=== PATIENT | female | born 1975 | race Caucasian/White ===

== ENCOUNTER 2021-06-25 21:14 | Outpatient (REF) | payer MEDICAID, SELFPAY ==
[2021-06-25 21:40] LABS: Anion Gap 7.5 mmol/L (3-11); BUN 8 mg/dL (7-18); CO2 26.5 mmol/L (21.0-32.0); CREATININE 0.7 mg/dL (0.55-1.02); Calcium 8.7 mg/dL (8.5-10.1); Chloride 106 mmol/L (98-107); Glucose 92 mg/dL (74-106); Potassium 3.9 mmol/L (3.5-5.1); Sodium 140 mmol/L (136-145)
[2021-06-27 15:29] LABS: COVID-19 RT-PCR UVMMC Result Negative (Negative)
[2021-06-28 10:28] LABS: Hepatitis C Ab w Rflx HCV PCR Negative (Negative)
[2021-06-28 10:33] LABS: Syphilis Serology (RPR) Negative (Negative)
[2021-06-28 13:06] LABS: HIV-1/2 Ag & Ab Screen Negative (Negative)
[2021-06-28 15:36] LABS: Chlamydia Result Negative (Negative); GC Result Negative (Negative)
== END 2021-06-25 21:15 | disposition home or self-care (01) ==
LOC: NCHCN 21:14
PROVIDERS: Visit Provider Nurse Practitioner Family
DX: I10 Essential (primary) hypertension (principal); E28.2 Polycystic ovarian syndrome; Z11.4 Encounter for screening for human immunodeficiency virus [HIV]; Z11.59 Encounter for screening for other viral diseases; Z11.3 Encounter for screening for infections with a predominantly sexual mode of transmission; Z20.822 Contact with and (suspected) exposure to COVID-19
CPT/HCPCS: 80048; 86803; 87389; 87491; 87591; U0003; 86592

== ENCOUNTER 2022-02-09 17:27 | Outpatient (REF) | payer MEDICAID, SELFPAY ==
--- NOTE | 2022-02-09 14:00 | PAPFT_PTH ---
PATIENT: Michelle Arevalo LOC: [facility]#:[id number] AGE/SX: 46/F ROOM: RE02/09/[address]: Carlee Nam : 1975 BED: DIS: 02/09/2022 SPEC #: [id number] RECD: 02/10/22 13:08 STATUS: ZARA GARCIA #: [id number] VICKIE: 02/09/22 14:[address]: Carlee Nam DEPT: [facility] Cytology RECD BY: Be Mae Tissues: 1 - CX/ENDOCX FOR PAP SMEARS Procedures: PAP THIN PREP/UVM Screening HPV DNA PROBE Comments: [id number] (CHLAMYDIA/GC)
[2022-02-10 08:47] LABS: BUN 9 mg/dL (7-18); CREATININE 0.7 mg/dL (0.55-1.02); Calcium 8.8 mg/dL (8.5-10.1); Chloride 105 mmol/L (98-107); Glucose 80 mg/dL (74-106); Potassium 3.8 mmol/L (3.5-5.1); Sodium 141 mmol/L (136-145)
[2022-02-11 10:10] LABS: HBs Antibody, Quant >1000.0 mIU/mL (See Note); Hepatitis B Surface Ab Positive (See Note)
[2022-02-11 11:00] LABS: HIV-1/2 Ag & Ab Screen Negative (Negative)
[2022-02-11 11:16] LABS: Hepatitis C Ab w Rflx HCV PCR Negative (Negative)
[2022-02-11 23:06] LABS: Chlamydia Result Negative (Negative); GC Result Negative (Negative)
== END 2022-02-09 17:28 | disposition home or self-care (01) ==
LOC: NCHCN 17:27
PROVIDERS: Visit Provider Nurse Practitioner Family
DX: I10 Essential (primary) hypertension (principal); Z11.3 Encounter for screening for infections with a predominantly sexual mode of transmission; Z11.4 Encounter for screening for human immunodeficiency virus [HIV]; Z11.59 Encounter for screening for other viral diseases; Z12.4 Encounter for screening for malignant neoplasm of cervix; Z11.51 Encounter for screening for human papillomavirus (HPV)
CPT/HCPCS: 80048; 86706; 86803; 87389; 87491; 87591; 88142; 83880; 87624

== ENCOUNTER 2022-02-09 18:40 | Outpatient (REF) | payer MEDICAID, SELFPAY | END 2022-02-09 18:41 | disposition home or self-care (01) | LOC: NCHCN 18:40 | PROVIDERS: Visit Provider Nurse Practitioner Family ==

== ENCOUNTER 2022-11-29 11:22 | Outpatient (REF) | payer MEDICAID, SELFPAY ==
[2022-11-29 14:57] LABS: HCT 42.1 % (36.0-46.0); HGB 13.9 g/dL (11.2-15.7); MCH 27.8 pg (27.0-33.0); MCV 84 fL (80-95); MPV 9.6 fL (8.0-11.0); Platelet Count 315 10^3/uL (130-400); RDW 13.8 % (11.7-14.6); RDW-SD 42.9 fL; WBC 8.07 10^3/uL (4.4-10.8)
[2022-11-29 15:29] LABS: ALT 26 U/L (14-59); AST 22 U/L (15-37); Albumin 3.7 g/dL (3.4-5.0); Alkaline Phosphatase 55 U/L (46-116); Anion Gap 10.8 mmol/L (3-11); BUN 9 mg/dL (7-18); Bilirubin, Total 0.3 mg/dL (0.2-1.0); CO2 27.2 mmol/L (21.0-32.0); CREATININE 0.8 mg/dL (0.55-1.02); Calcium 9.3 mg/dL (8.5-10.1); Chloride 104 mmol/L (98-107); Estimated GFR 92.54 (mL/min/1.73m2); Ferritin 35 ng/mL (8-252); Glucose 146 mg/dL (74-106); Potassium 3.4 mmol/L (3.5-5.1); Sodium 142 mmol/L (136-145)
[2022-11-29 15:35] LABS: Vitamin D 25 Total 30.8 ng/mL (30-100)
== END 2022-11-29 11:23 | disposition home or self-care (01) ==
LOC: NCHCN 11:22
PROVIDERS: Visit Provider Nurse Practitioner Family
DX: I10 Essential (primary) hypertension (principal); R53.83 Other fatigue
CPT/HCPCS: 80053; 82306; 85027; 82728; 84443

== ENCOUNTER 2023-02-07 11:33 | Outpatient (REF) | payer MEDICAID, SELFPAY ==
[2023-02-07 15:04] LABS: Anion Gap 7.7 mmol/L (3-11); BUN 11 mg/dL (7-18); CO2 26.3 mmol/L (21.0-32.0); CREATININE 0.8 mg/dL (0.55-1.02); Calcium 8.7 mg/dL (8.5-10.1); Chloride 106 mmol/L (98-107); Estimated GFR 92.54 (mL/min/1.73m2); Glucose 93 mg/dL (74-106); Potassium 3.7 mmol/L (3.5-5.1); Sodium 140 mmol/L (136-145)
== END 2023-02-07 11:34 | disposition home or self-care (01) ==
LOC: NCHCN 11:33
PROVIDERS: PCP Nurse Practitioner Family; Visit Provider Nurse Practitioner Family
DX: I10 Essential (primary) hypertension (principal)
CPT/HCPCS: 80048

== ENCOUNTER 2023-07-19 15:33 | Outpatient (REF) | payer MEDICAID, SELFPAY ==
[2023-07-19 21:27] LABS: Anion Gap 8.8 mmol/L (3-11); BUN 9 mg/dL (7-18); CO2 25.2 mmol/L (21.0-32.0); CREATININE 0.7 mg/dL (0.55-1.02); Calcium 9.1 mg/dL (8.5-10.1); Chloride 104 mmol/L (98-107); Estimated GFR 107.95 (mL/min/1.73m2); Glucose 120 mg/dL (74-106); Potassium 3.4 mmol/L (3.5-5.1); Sodium 138 mmol/L (136-145)
== END 2023-07-19 15:34 | disposition home or self-care (01) ==
LOC: NCHCN 15:33
PROVIDERS: PCP Nurse Practitioner Family; Visit Provider Nurse Practitioner Family
DX: I10 Essential (primary) hypertension (principal); R73.03 Prediabetes; N93.9 Abnormal uterine and vaginal bleeding, unspecified
CPT/HCPCS: 80048; 83036

== ENCOUNTER 2024-06-11 15:48 | Outpatient (REF) | payer MEDICAID, SELFPAY ==
[2024-06-11 14:30] LABS: ALT 24 U/L (14-59); AST 18 U/L (15-37); Albumin 3.6 g/dL (3.4-5.0); Alkaline Phosphatase 59 U/L (46-116); Anion Gap 8.2 mmol/L (3-11); BUN 8 mg/dL (7-18); Bilirubin, Total 0.33 mg/dL (0.2-1.0); CO2 26.8 mmol/L (21.0-32.0); CREATININE 0.7 mg/dL (0.55-1.02); Calcium 8.9 mg/dL (8.5-10.1); Calculated LDL 111 mg/dL (<100); Chloride 104 mmol/L (98-107); Cholesterol 181 mg/dL (<200); Estimated GFR 107.28 (mL/min/1.73m2); Glucose 128 mg/dL (74-106); HDL Cholesterol 48 mg/dL (40-60); Potassium 3.6 mmol/L (3.5-5.1); Sodium 139 mmol/L (136-145); Triglyceride 113 mg/dL (<150)
--- OUTSIDE RECORDS SUMMARY | 2024-06-11 15:50 | XMS_ITS | Data Portability ---
Author Organization [place] - [facility], Historical Import Interface Address [address] [place] [address] Assessment Encounter Date Assessment Date Assessment LastModified by Organization Details LastModified Time 06/29/2023 06/29/2023 06-29-23 [place] [facility], PHOTOC[employer]YING [employer]IPMENT MECH[employer]IC NHV 6 mo Apro Luis John?? Completed Procedures D4346 - Scaling in the presence of generalized moderate or severe gingival inflammation - full mouth, after oral evaluation D0601 - Caries risk assessment and documentation, with a finding of low risk CC:?? No tooth concerns?? HHX: Reviewed, no changes. No CI to TX. ?? ON 2 BP meds?being monitered for increasing BP?? BP: ?? 152/101 75 right wrist omron? EOE/IOE: No s/s of hard or soft tissue pathology. ?? Exam: ??PT had MAISHA and FMX december 2022? over 3 years since last cleaning. pt aware #c is retained with blocked #6?? Caries Risk: ?? mod?? POH:?? using electric tb daily Brushing: some with flossers Flossing: ?? Plaque: sl Calculus: mod to heavy IP, mod supra/ip sandy ant lingual Stain: mod coffee?? Bleeding: mod to heavy chani UL Gingival tissues: ??generalized moderate-severe inflammation bleeds easily?? OHI: Recommended brushing 2x/daily along gumline , flossing 1x/daily, using NaF rinse daily. Explained plaque, gingivitis, tartar, decay and perio. Demo ramos sulcular brushing technique. Demo flossing technique. ?? Perio: see perio chart today?localized 4-5 mm?? should have some nice healing after today. . Discussed with pt- Recommended thorough OH, daily flossing to help improve and maintain gingival condition. ?? Hygiene Txt: Scaled/deplaque d all 4 quads with HI and USS. Polished, flossed. ?? pt tolerated well?? Referral: None. ?? D0601 Caries vesta LOW , 10:04 AM. I attest that the treatment rendered today is completed and treatment met the standard of care. , 11:00 AM. [id number] Not available 08/14/2023 16:36:49 Plan of Treatment Reminders Order Date Submit Date Provider Last Modified By Organization Details Last Modified Time Details Appointments None record ed. Lab None record ed. Referral None record ed. Procedures None record ed. Surgeries None record ed. Imaging None record ed. Medication Orders None record ed. Patient TargetsNo targets recorded. Patient InstructionsNo instructions recorded. Reason for Referral None Reported. Medical Equipment None Reported. Medications Name Sig Start Date Stop Date Status Note LastModified by Organization Details LastModified Time amlodipine 2.5 mg tablet active Not Available Not Availabl e Not Available Vitals None Recorded Social History None recorded. Functional Status None recorded. Mental Status None recorded. Family History Nothing Reported. Medical History No medical history recorded. Gynecological HistoryNo gynecological history recorded. Obstetrics History GPAL:G 0 P 0 0 0 0 Past Encounters Encounter ID Performer Location Encounter Start Date Encounter Closed Date Diagnosis/Indication Diagnosis SNOMED-CT Code Diagnosis ICD10 Code [id number] Dental [address] [place] [address] 12/08/2022 08:55:52 03/25/2023 00:00:00 [id number] [facility] [address] [facility] [address] 06/29/2023 07:59:00 08/14/2023 16:36:52 Health Concerns Section Related Observation LastModified by Organization Detai ls LastModified Time None Recorded Concern Status LastModified by Organization Details LastModified Time None Recorded Advance Directives Directive None Recorded Payers Encounter Date Sequence Insurance Name Policy Number Policy Azevedo Covered Member ID Azevedo Member ID Guarantor Name 12/08/2022 [employer] (MOVED TO HOLD) Michelle Arevalo [id number] Michelle Arevalo 12/08/2022 *SELF PAY* Michelle Arevalo 06/29/2023 [employer] (MOVED TO HOLD) Michelle Arevalo [id number] Michelle Arevalo 06/29/2023 *SELF PAY* Michelle Arevalo OBGyn Episode No OBEpisode recorded.
--- OUTSIDE RECORDS SUMMARY | 2024-06-11 15:51 | XMS_ITS | Continuity of Care Document ---
Author Organization [place] - [facility], [facility] Address [address] [place] [address] Assessment Encounter Date Assessment Date Assessment LastModified by Organization Details LastModified Time 05/15/2024 05/15/2024 The patient presents with sudden severe neuropathic pain in her left lower back, buttocks, and upper thigh, likely related to her long-standing history of low back pain. Additionally, the patient has a recent fracture of her right ankle, which may have contributed to her current lower back pain due to altered walking mechanics. The patient has been taking a Medrol Dosepak and gabapentin, with the steroids helping to decrease inflammation and improve her mobility. Patient continues to work her regular job at the [employer]. [email or web address] Not available 05/15/2024 16:38:22 Plan of Treatment Reminders Order Date Submit Date Provider Last Modified By Organization Details Last Modified Time Details Appointments Nurse Visit 20 2023 10:40A M Not available Not available Not available Acupunctu re 10 2023 09:30A M Not available Not available Not available Annual Wellness Exam 40 2023 09:40A M Not available Not available Not available Massage 30 2023 02:00P M Not available Not available Not available Lab None recorded. Referral physical therapist referral 2023 024 [facility], [address] [place] [address], [address], 05/16/2024 07:45:30 Procedures None recorded. Surgeries None recorded. Imaging None recorded. Medication Orders cyclobenz aprine 10 mg tablet 2023 024 [id number], [address], [place], [place], [phone], 05/15/2024 15:41:21 Patient TargetsNo targets recorded. Patient Instructions Encounter Date Encounter Id Patient Instructions Last Modified By Organization Details Last Modified Time 05/15/2024 [id number] - Continue the course of prednisone as prescribed - Consider stopping gabapentin if it is not providing significant pain relief and try a muscle relaxant, such as Flexeril (cyclobenzaprine), instead - Use heat for pain relief in the affected areas - Consider physical therapy to address chronic low back pain and left lower back, buttocks, and upper thigh pain - Follow the orthopedist's recommendations for the right ankle fracture - Monitor for any further episodes of numbness and seek care if symptoms persist or worsen [email or web address] Not available 05/15/2024 15:47:27 Reason for Referral Physical Therapist Referral for Low back pain Referring Physician: [facility], Encounter Date: 05/15/2024 Results Created Date Observation Date Name Description Value Unit Range Abnormal Flag Note LastModifiedBy Organization Detail LastModifiedTime 04/25/20 24 04/24/2024 XR, ankle , 3 or more view No observ ation record ed. [email or web address] [facility] [address], [place], [address], 04/26/2024 07:38:33 Result Notes None recorded. 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 trimeste r Dayanna Valle null, [facility], [facility] 15:27:15 [facility] mercedes 04281993 [facility] 15:24[facility] Screenin g for malignan t neoplasm of breast [facility] 15:28:26 Contrace ption care educatio n Active 2020 [facility] 4 15:24:32 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 A1c 5.8 [facility] 4 15:28:15 Obesity 255936503 Active 2020 BMI 30-34.9, adult [facility] 4 15:27:42 Viral screenin g Completed 202007/23/2021 Problem Code: Z11.59; Problem Code Type: ICD-10; Not Available [facility] 3 04:19:31 HIV screenin g Completed 202007/23/2021 Problem Code: Z11.4; Problem Code Type: ICD-10; Not Available [facility] 3 04:19:31 Tobacco use cessatio n educatio n Active 2021 [facility] 15:28:35 Adult health examinat ion Completed 202103/11/2022 Problem Code: Z00.00; Problem Code Type: ICD-10; Not Available [facility] 3 04:19:31 Venereal disease screenin g Completed 202103/11/2022 Problem Code: Z11.3; Problem Code Type: ICD-10; Not Available [facility] 3 04:19:31 Digestiv e system disease screenin g Completed 202103/11/2022 Problem Code: Z13.818; Problem Code Type: ICD-10; Not Available [facility] 3 04:19:31 Screenin g for malignan t neoplasm of colon Completed 202111/12/2022 Problem Code: Z12.11; Problem Code Type: ICD-10; Not Available [facility] 3 04:19:31 Snoring 77301772 Completed 202108/17/2022 Problem Code: R06.83; Problem Code Type: ICD-10; Not Available [facility] 3 04:19:32 Fatigue 73330283 Active 2022 Dayanna Leonard [facility] 4 15:25:03 History of clinical finding in subject 713808100 Completed 202111/29/2022 Problem Code: Z87.898; Problem Code Type: ICD-10; Not Available [facility] 3 04:19:40 Left side sciatica 37317158983 9104 Active 2023 LISBETH LAWTON MD [address], [facility] [id number] [place] [address] 4 13:07:07 Low back pain 162789340 Active 2023 GIACOMO BEARD [address], [facility] [id number] [place] [address] 4 15:40:12 Fracture of ankle 11434340 Active 2023 GIACOMO BEARD [address], [facility] [id number] [place] [address] 4 16:37:31 Problem Notes None recorded. Medical Equipment None Reported. Allergies Allergen ID Allergen Name Allergen Category Reaction Reaction Severity Criticality Documentation Date Start Date Code Code System Note Provider Name and Address Organization Details Recorded Time 10195 Chantix medicatio n other moderate Not available 08/18/20232022 64701 0 RxNorm No react ion enter ed [facility] 15:29:17 Medications Name Sig Start Date Stop Date Status Note LastModified by Organization Details LastModified Time cyclobenzap rine 10 mg tablet TAKE 1 TABLET BY MOUTH 3 TIMES A DAY active Not Available Not Available No t Available metformin 500 mg tablet 06/25 completed Not Available Not Available Not Available doxycycline hyclate 100 mg capsule Take one capsule two times daily by mouth as directed active Not Available Not Available No t Available azithromyci n 250 mg tablet Take two tablets by mouth on day 1 followed by one tablet daily by mouth for a total of 5 days as directed active Not Available Not Available No t Available fluconazole 150 mg tablet Take one tablet by mouth ONCE. May repeat dose in 72 hours if needed. Take as directed. active Not Available Not Available No t Available metronidazo le 500 mg tablet Take 1 tablet by mouth three times per day for 10 days. DO NOT DRINK ALCOHOL WHILE TAKING THIS MEDICATIO N. Take as directed. active Not Available Not Available No t Available phentermine 37.5 mg tablet Take 1 tablet by mouth once a day 06/25 completed Not Available Not Available Not Available amlodipine 5 mg tablet Take 1 tablet by mouth once a day 12/12 completed Not Available Not Available Not Available ciprofloxac in 500 mg tablet Take one tablet two times daily by mouth as directed active Not Available Not Available No t Available Nicoderm CQ 7 mg/24 hr daily transdermal patch Apply 1 patch to skin once a day rotate skin sites 02/09 completed Not Available Not Available Not Available alprazolam 0.25 mg tablet Take 1 tablet by mouth twice a day as needed 06/25 completed Not Available Not Available Not Available Nicoderm CQ 14 mg/24 hr daily transdermal patch Apply 1 patch to skin once a day Apply to hairless area. Rotate skin sites. 06/08 completed Not Available Not Available Not Available amlodipine 10 mg tablet Take 1 tablet every day by oral route. 11/02 completed Not Available Not Available Not Available albendazole 200 mg tablet Take 2 tablets as a single dose by mouth; repeat in 2 weeks as directed active Not Available Not Available No t Available gabapentin 300 mg capsule TAKE 1 CAPSULE TWICE A DAY BY ORAL ROUTE NEEDED, FOR ACUTE SCIATICA. active Not Available Not Available No t Available methylpredn isolone 4 mg tablets in a dose pack Take the medicatio n exactly as prescribe d by your physician . The Medrol Dosepak comes with 21 tablets, to be taken over a course of 6 days. active Not Available Not Available No t Available amoxicillin 875 mg-potassiu m clavulanate 125 mg tablet Take one tablet by mouth two times daily as directed active Not Available Not Available No t Available olmesartan 5 mg tablet Take 2 tablet by mouth once a day take one pill per day for 1 week then increase to 2 pills per day if your BP is still above 150/90 01/28 completed Not Available Not Available Not Available olmesartan 20 mg tablet TAKE 1 TABLET BY MOUTH EVERYDAY AT BEDTIME 09/05 completed Not Available Not Available Not Available olmesartan 40 mg tablet TAKE 1 TABLET BY MOUTH EVERYDAY AT BEDTIME 11/02 completed Not Available Not Available Not Available Tri-Sprinte c (28) 0.18 mg(7)/0.215 mg(7)/0.25 mg(7)-35 mcg tablet Take 1 tablet by mouth once a day 06/25 completed Not Available Not Available Not Available varenicline 1 mg tablet Take 1 tablet by mouth twice a day starting on day 8 (after finishing 0.5mg tabs) 06/08 completed Not Available Not Available Not Available amlodipine 10 mg-olmesart an 40 mg tablet TAKE 1 TABLET BY MOUTH EVERY DAY active Not Available Not Available No t Available Plan B One-Step 1.5 mg tablet Take 1 tablet by mouth as directed 11/29 completed Not Available Not Available Not Available Chantix Starting Month Box 0.5 mg (11)-1 mg (42) tablets in dose pack take as directed per instructi ons on package 02/09 completed Not Available Not Available Not Available Vitals Date Recorded Body height Body temperature Oxygen saturation Oxygen saturation in Arterial blood by Pulse oximetry Heart rate Systolic blood pressure Diastolic blood pressure Provider Name and Address Organization Details Last Updated DateTime 4 152.4 cm 98.4 [degF] 97 % 97 % 89 /min 112 mm[Hg] 76 mm[Hg] ZENON HORNE RN [place] [facility] 4 15:20:51 Social History Question Answer Notes LastModified by Organizat ion Details LastModified Time Tobacco Smoking Status Former Smoker ITALO PETERS MA [facility], [facility] 12/13/2023 13:59:37 Do You Or Have You Ever Used E-cigarettes Or Vape? Current User Of Electronic Cigarettes [email or web address] Information not available 12/13/2023 When Did You Quit Smoking? 1-5yearssincelandrew mims [email or web address] Information not available 12/13/2023 Do You Or Have You Ever Used Smokeless Tobacco? Never Used Smokeless Tobacco Information not available 12/13/2023 Do You Or Have You Ever Used Any Other Forms Of Tobacco Or Nicotine? Yes Information not available 12/13/2023 How Many Years Have You Used E-cigarettes Or Vape? 1 [email or web address] Information not available 12/13/2023 Sex: Female Functional Status None recorded. Mental Status None recorded. Family History Nothing Reported Notes:*Problem: Mother - Tra umatic injury at 25 Father - Hypertensive disorder, Hyperlipidemia, Heart disease Paternal Grandfather - Myocardial infraction Paternal Grandmother - Hx of Cerebrovascular accident Medical History No medical history recorded. Gynecological HistoryNo gynecological history recorded. Obstetrics History GPAL:G 0 P 0 0 0 0 Immunizations Vaccine Type Date Status Provider Name and Address Organization Details Recorded Time Tdap 03/19/2014 completed Not Available [facility] 04:40:16 Influenza, split virus, quadrivalent, PF 06/25/2021 completed Not Available [facility] 08/18/2023 04:40:18 Influenza, split virus, quadrivalent, PF 08/09/2022 completed Not Available [facility] 08/18/2023 04:40:18 COVID-19, mRNA, LNP-S, bivalent, PF, 30 mcg/0.3 mL dose 08/09/2022 completed Not Available [facility] 08/18/20 04:40:22 pneumococcal polysaccharide PPV23 02/09/2022 completed Not Available [facility] 2022 04:40:22 influenza, unspecified formulation 07/19/2023 completed BULL Hong, [facility] 09/05/2023 13:13:28 COVID-19, mRNA, LNP-S, PF, janell-sucrose, 30 mcg/0.3 mL 07/19/2023 completed Lisy Dougherty LPN [facility], [place] [facility] 09/05/2023 13:13:50 Influenza, split virus, quadrivalent, PF 07/19/2023 completed Not Available [facility] 10/20/2023 05:31:43 Past Encounters Encounter ID Performer Location Encounter Start Date Encounter Closed Date Diagnosis/Indication Diagnosis SNOMED-CT Code Diagnosis ICD10 Code [id number] ALFREDO RODOST, FLEET [employer]NAGER[employer]DISPATCH [address] [address] 05/15/2024 15:14:09 05/15/2024 15:49:16 Low back pain 401828874 M54.50 Fracture of ankle 385158 01 S82.91XD Health Concerns Section Related Observation LastModified by Organization Detai ls LastModified Time None Recorded Concern Status LastModified by Organization Details LastModified Time None Recorded Payers Encounter Date Sequence Insurance Name Policy Number Policy Azevedo Covered Member ID Azevedo Member ID Guarantor Name 05/15/2024 1 [facility] (MEDICAID) Michelle Arevalo [id number] Michelle Arevalo Notes Date Note Type Note Provider Name and Address Organization Details Recorded Time 05/15/2024 text/html HPI Notes: 49-year-old female presents to clinic today for follow-up back pain. Spoke with on-call provider this past weekend regarding lower back pain radiating to left buttocks. Was treated with Medrol Dosepak and gabapentin. Pain has gradually improved. Low back pain: The patient has a history of low back pain since her last 10 years ago. The pain is usually not debilitating but has recently increased in severity. On Monday, the patient experienced sudden severe pain in her left lower back, buttocks, and upper thigh while bending over, resulting in difficulty walking. She was unable to stand on Monday and Monday morning. The patient started taking a Medrol Dosepak and gabapentin on Monday night. Recent fracture of right ankle: The patient fractured her right ankle on April 10. She was initially advised to wear an air cast and not put any weight on it. After 14 days, she had a follow-up appointment with an orthopedist who allowed her to start putting weight on it and gave her the choice of wearing a boot or shoe. SH The patient is currently working and has a history of substance use, specifically mentioning not drinking alcohol ALFREDO MCKAY, [address], [place], [address], [facility]. 05/15/2024 16:38:33 OBGyn Episode No OBEpisode recorded.
--- OUTSIDE RECORDS SUMMARY | 2024-06-11 15:51 | XMS_ITS | Continuity of Care Document ---
Author Organization [facility] Address [address] [place] [address] Assessment No assessment recorded. Plan of Treatment Reminders Order Date Submit [...] Not available Not available Not available Lab lipid panel, serum 2023 024 [email or web address] [facility] (Registration ), [address] [place] [address] [place], [address], 06/11/2024 10:40:10 HbA1c (hemoglob in A1c), blood 2023 024 [email or web address] [facility] (Registration ), [address] [place] [address] [place], [address], 06/11/2024 10:40:39 CMP, serum or plasma 2023 024 ELIZABETH [facility] (Registration ), [address] [place] [address] [place], [address], 06/11/2024 14:35:28 Referral None recorded. Procedures None recorded. Surgeries None recorded. Imaging None recorded. Medication Orders None recorded. Patient TargetsNo targets recorded. Patient InstructionsNo instructions recorded. Reason for Referral Physical Therapist Referral for Low back pain Referring Physician: Alfredo Mckay, Family Medicine, Encounter Date: 05/15/2024 Problems Name Problem SNOMED Code Status Onset Date Resolution Date Notes Provider Name and Address Organization Details Recorded Time Polycyst ic ovary syndrome 115189096 Active 2020 Dayanna Valle [facility] 4 15:27:55 Anxiety [facility]503580 [facility] 4 15:24[facility] Maternal hyperten mercedes 823561651 Active 2020 unspecif ied trimeste r [facility] 4 15:27:15 [facility] hyperten mercedes 64916911 Active 2020 [facility] 4 15:24:51 Screenin g for malignan t neoplasm of breast Active 2020 [facility] 4 15:28:26 Contrace ption care educatio n Active 2020 [facility] 4 15:24:32 Prediabe america 512085400 Active 2020 [facility] 15:28:15 Obesity 464944515 Active 2020 BMI 30-34.9, [facility] 4 15:27:42 Viral screenin g Completed 202007/23/2021 Problem Code: Z11.59; Problem Code Type: ICD-10; Not Available [facility] 3 04:19:31 HIV screenin g Completed 202007/23/2021 Problem Code: Z11.4; Problem Code Type: ICD-10; Not Available [facility] 3 04:19:31 Tobacco use cessatio n educatio n [facility] 4 15:28:35 Adult health examinat ion Completed 202103/11/2022 Problem Code: Z00.00; Problem Code Type: ICD-10; Not Available [facility] 3 04:19:31 Venereal disease screenin g Completed 202103/11/2022 Problem Code: Z11.3; Problem Code Type: ICD-10; Not Available [facility] 3 04:19:31 Digestiv e system disease screenin g Completed 202103/11/2022 Problem Code: Z13.818; Problem Code Type: ICD-10; Not Available [facility] 3 04:19:31 Screenin g for malignan t neoplasm of colon Completed 202111/12/2022 Problem Code: Z12.11; Problem Code Type: ICD-10; Not Available [facility] 3 04:19:31 Snoring 35522529 Completed 202108/17/2022 Problem Code: R06.83; Problem Code Type: ICD-10; Not Available [facility] 3 04:19:32 Fatigue 60731300 Active 2022 Dayanna Valle merritt, [facility] 4 15:25:03 History of clinical finding in subject 536806213 Completed 202111/29/2022 Problem Code: Z87.898; Problem Code Type: ICD-10; Not Available [facility] 3 04:19:40 Left side sciatica 56134076957 9104 Active [address], [place], [address] , [facility]. 4 13:07:07 Low back pain 377769727 Active [address], [place], [address] , [facility]. 4 15:40:12 Fracture of ankle 69281397 Active 2023 ALFREDO MCKAY, [employer] [address], [place], [address] , [facility] 4 16:37:31 Problem Notes None recorded. Medical Equipment None Reported. Allergies Allergen ID Allergen Name Allergen Category Reaction Reaction Severity Criticality Documentation Date Start Date Code Code System Note Provider Name and Address Organization Details Recorded Time 99173 Chantix medicatio n other moderate Not available 08/18/20232022 09641 0 RxNorm No react ion enter ed Dayanna bang [facility] 4 15:29:17 Medications Name Sig Start [...] Not Available Not Available Not Available Vitals None Recorded Social History Question Answer Notes LastModified by Organizat ion Details LastModified Time Tobacco Smoking Status Former Smoker ITALO PETERS MA null, [place] - [facility]. 12/13/2023 13:59:37 Do You Or Have You Ever Used E-cigarettes Or Vape? Current User Of Electronic Cigarettes [email or web address] Information not available 12/13/2023 When Did You Quit Smoking? 1-5yearssinmarylu prasanna [email or web address] Information not available 12/13/2023 Do You Or Have You Ever Used Smokeless Tobacco? Never Used Smokeless Tobacco [email or web address] Information not available 12/13/2023 Do You Or Have You Ever Used Any Other Forms Of Tobacco Or Nicotine? Yes Information not available 12/13/2023 How Many Years Have You Used E-cigarettes Or Vape? 1 Information not available 12/13/2023 Sex: Female Functional [...] Recorded Time Tdap 03/19/2014 completed Not Available [facility] 04:40:16 Influenza, split virus, quadrivalent, PF 06/25/2021 completed Not Available [facility] 08/18/2023 04:40:18 Influenza, split virus, quadrivalent, PF 08/09/2022 completed Not Available [facility] 08/18/2023 04:40:18 COVID-19, mRNA, LNP-S, bivalent, PF, 30 mcg/0.3 mL dose 08/09/2022 completed Not Available [facility] 08/18/20 04:40:22 pneumococcal polysaccharide PPV23 02/09/2022 completed Not Available [facility] 2022 04:40:22 influenza, unspecified formulation 07/19/2023 completed BULL Hong, [facility] 09/05/2023 13:13:28 COVID-19, mRNA, LNP-S, PF, janell-sucrose, 30 mcg/0.3 mL 07/19/2023 completed BULL Hong, [facility] 09/05/2023 13:13:50 Influenza, split virus, quadrivalent, PF 07/19/2023 completed Not Available [facility] 10/20/2023 05:31:43 Past Encounters Encounter ID Performer Location Encounter Start Date Encounter Closed Date Diagnosis/Indication Diagnosis SNOMED-CT Code Diagnosis ICD10 Code [id number] ALFREDO BELLA, [address] [address] 05/15/2024 15:14:09 05/15/2024 15:49:16 Low back pain 483170518 M54.50 Fracture of ankle 161816 01 S82.91XD [id number] Lisy Dougherty LPN [address] [address] 06/11/2024 09:39:00 06/11/2024 10:21:08 Prediabetes 987147397 R73.03 Essential hypertension 13146146 I10 Health Concerns Section Related Observation LastModified by Organization Detai ls LastModified Time None Recorded Concern Status LastModified by Organization Details LastModified Time None Recorded Payers Encounter Date Sequence Insurance Name Policy Number Policy Azevedo Covered Member ID Azevedo Member ID Guarantor Name 06/11/2024 1 [facility] (MEDICAID) Michelle Arevalo [id number] Michelle Arevalo OBGyn Episode No OBEpisode recorded.
--- OUTSIDE RECORDS SUMMARY | 2024-06-11 15:51 | XMS_ITS | Continuity of Care Document ---
Author Organization [place] - [facility] Address [address] [place] [address] Assessment No assessment recorded. Plan of Treatment Reminders Order Date Submit Date Provider Last Modified By Organization Details Last Modified Time Details Appointments Nurse Visit 2023 10:40A M Not available Not available Not available Acupunctu re 10 2023 09:30A M Not available Not available Not available Annual Wellness Exam 40 2023 09:40A M Not available Not available Not available Massage 30 2023 02:00P M Not available Not available Not available Lab None recorded. Referral None recorded. Procedures None recorded. Surgeries None recorded. Imaging None recorded. Medication Orders None recorded. Patient TargetsNo targets recorded. Patient InstructionsNo instructions recorded. Reason for Referral Physical Therapist Referral for Low back pain Referring Physician: Alfredo Mckay, Family Medicine, Encounter Date: 05/15/2024 Results Created Date Observation Date Name Description Value Unit Range Abnormal Flag Note LastModifiedBy Organization Detail LastModifiedTime 03/11/2003/10/2024 elect hai castellano am, cristhian ne ECG, 12 leads min No observ ation record ed. rtatel Not Available 2023 08:52:13 04/10/20 24 04/10/2024 XR, ankle No observ ation record ed. [email or web address] [facility] [address], [place], [place], [address], 04/10/2024 14:12:24 04/25/20 24 04/24/2024 XR, ankle , 3 or more view No observ ation record ed. [email or web address] [facility] [address], [place], [address], 04/26/2024 07:38:33 Result Notes None recorded. Problems Name Problem SNOMED Code Status Onset Date Resolution Date Notes Provider Name and Address Organization Details Recorded Time Polycyst ic ovary syndrome 408081913 Active 2020 [facility] 4 15:27:55 Anxiety disorder 266975192 Active 2020 [facility] 4 15:24:21 Maternal hyperten mercedes 787830680 Active 2020 unspecif ied trimeste r [facility] 4 15:27:15 Essentia l hyperten mercedes 77913493 Active 2020 [facility] 4 15:24:51 Screenin g for malignan t neoplasm of breast Active 2020 [facility] 4 15:28:26 Contrace ption care educatio n Active 2020 [facility] 4 15:24:32 Prediabe america 710778516 Active 2020 A1c 5.8 [facility] 4 15:28:15 Obesity 943248157 Active 2020 BMI 30-34.9, adult [facility] 4 15:27:42 Viral screenin g Completed 202007/23/2021 Problem Code: Z11.59; Problem Code Type: ICD-10; Not Available [facility] 3 04:19:31 HIV screenin g Completed 202007/23/2021 Problem Code: Z11.4; Problem Code Type: ICD-10; Not Available [facility] 3 04:19:31 Tobacco use cessatio n educatio n Active 2021 Dayanna Leonard null, [facility] 4 15:28:35 Adult health examinat ion Completed 202103/11/2022 Problem Code: Z00.00; Problem Code Type: ICD-10; Not Available [facility] 3 04:19:31 Venereal disease screenin g Completed 202103/11/2022 Problem Code: Z11.3; Problem Code Type: ICD-10; Not Available [facility] 3 04:19:31 Digestiv e system disease screenin g Completed 202103/11/2022 Problem Code: Z13.818; Problem Code Type: ICD-10; Not Available [facility] 3 04:19:31 Screenin g for malignan t neoplasm of colon Completed 202111/12/2022 Problem Code: Z12.11; Problem Code Type: ICD-10; Not Available [facility] 3 04:19:31 Snoring 04575374 Completed 202108/17/2022 Problem Code: R06.83; Problem Code Type: ICD-10; Not Available [facility] 3 04:19:32 Fatigue 90993337 Active 2022 Dayanna Leonard bang, [facility] 4 15:25:03 History of clinical finding in subject 007202949 Completed 202111/29/2022 Problem Code: Z87.898; Problem Code Type: ICD-10; Not Available [facility] 3 04:19:40 Left side sciatica 33296757782 9104 Active [address], [place], [address] , [facility] 4 13:07:07 Low back pain 876284394 Active [address], [place], [address] , [facility] 4 15:40:12 Fracture of ankle 49270358 Active 2023 ALFREDO MCKAY, MANAGER HOME [address], [place], [address] , [facility] 4 16:37:31 Problem Notes None recorded. Medical Equipment None Reported. Allergies Allergen ID Allergen Name Allergen Category Reaction Reaction Severity Criticality Documentation Date Start Date Code Code System Note Provider Name and Address Organization Details Recorded Time 73910 Chantix medicatio n other moderate Not available 08/18/20232022 76816 0 RxNorm No react ion enter ed Dayanna bang [facility] 4 15:29:17 Medications Name Sig [...] Not Available Vitals Date Recorded Body height Heart rate Oxygen saturation Oxygen saturation in Arterial blood by Pulse oximetry Body mass index (BMI) Body weight Body temperature Systolic blood pressure Diastolic blood pressure Provider Name and Address Organization Details Last Updated DateTime 152.4 cm 103 /min 98 % 98 % 36.5 kg/m2 15171.7 7 g 98.4 [degF] 136 mm[Hg] 94 mm[Hg] DOMINIC PARKS RN [facility] 13:51:48 Social History Question Answer Notes LastModified by Organizat ion Details LastModified Time Tobacco Smoking Status Former Smoker MONROE DIA, [facility] 12/13/2023 13:59:37 Do You Or Have You Ever Used E-cigarettes Or Vape? Current User Of Electronic Cigarettes Information not available 12/13/2023 When Did You Quit Smoking? 1-5yearssinmarylu mims [email or web address] Information not available 12/13/2023 Do You Or Have You Ever Used Smokeless Tobacco? Never Used Smokeless Tobacco [email or web address] Information not available 12/13/2023 Do You Or Have You Ever Used Any Other Forms Of Tobacco Or Nicotine? Yes Information not available 12/13/2023 How Many Years Have You Used E-cigarettes Or Vape? 1 [email or web address] Information not available 12/13/2023 Sex: Female Functional [...] Recorded Time Tdap 03/19/2014 completed Not Available [facility] 04:40:16 Influenza, split virus, quadrivalent, PF 06/25/2021 completed Not Available [facility] 08/18/2023 04:40:18 Influenza, split virus, quadrivalent, PF 08/09/2022 completed Not Available [facility] 08/18/2023 04:40:18 COVID-19, mRNA, LNP-S, bivalent, PF, 30 mcg/0.3 mL dose 08/09/2022 completed Not Available [facility] 08/18/20 04:40:22 pneumococcal polysaccharide PPV23 02/09/2022 completed Not Available [facility] 2022 04:40:22 influenza, unspecified formulation 07/19/2023 completed BULL Hong, [facility] 09/05/2023 13:13:28 COVID-19, mRNA, LNP-S, PF, janell-sucrose, 30 mcg/0.3 mL 07/19/2023 completed BULL Hong, [facility] 09/05/2023 13:13:50 Influenza, split virus, quadrivalent, PF 07/19/2023 completed Not Available [facility] 10/20/2023 05:31:43 Past Encounters Encounter ID Performer Location Encounter Start Date Encounter Closed Date Diagnosis/Indication Diagnosis SNOMED-CT Code Diagnosis ICD10 Code [id number] GIACOMO OCONNOR [address] [address] 03/11/2024 13:26:02 03/11/2024 14:52:50 Chest wall pain 386089998 R07.89 Normal grief reaction 27 8141713 F43.20 Essential hypertension 75535466 I10 Health Concerns Section Related Observation LastModified by Organization Detai ls LastModified Time None Recorded Concern Status LastModified by Organization Details LastModified Time None Recorded Payers Encounter Date Sequence Insurance Name Policy Number Policy Azevedo Covered Member ID Azevedo Member ID Guarantor Name 03/11/2024 1 [facility] (MEDICAID) Michelle Arevalo [id number] Michelle Arevalo Notes Date Note Type Note Provider Name and Address Organization Details Recorded Time 03/11/2024 text/html HPI Notes: 48 yo W with hx of HTN and smoking, family hx of heart disease, here for f/u chest pain episode on Friday 03/09 resulting in visit 03/10. She was at an event eating something while standing and having a conversation and suddenly had sharp chest pressure substernal, L>R, broad area that lasted for 30 minutes. No pleuritic pain. No palpitations, no radiation. It felt different from prior gallbladder attack which was right-sided. It also did not feel like GERD or esophageal related to eating. Experienced mild dizziness with it. Sat down in the grass and her sx gradually improved then went home after about 30 min. no recurrence of this pain since then. BP was normal urgent care yesterday. It was high at home two days ago, 160/109. She noticed a tender spot on her left chest wall today in the anterior aspect of her breast over her ribs. This feels like it could have been connected with the chest pain she had on Monday. Has not missed any doses of her blood pressure medication She has been taking Motrin f twice a day or the last 2 days to help her manage headaches that she relates to grief. Her dad yesterday morning, she was trying to go see him before he but she was too late. She has been experiencing significant grief with this. She has had a constant sensation of shortness of breath and chest tightness since her dad and she feels this is due to her grief. She has no limitations in activity, no exertional component to her symptoms however she has been laying low because of her grief. She has been not able to do much, crying a lot, staying in bed. She typically is 'the strong one' in her family. There will be a March 28, is a good support. No substance use, no alcohol. Has a low appetite since dad . No fever/chills. HAs had night sweats for the last 2 days. No N/V, No pain . Hx of cholelithiasis with right sided. No pain with eating. No GERD. Still vaping for the last year, quit smoking x 1 year. ANITA FISHER MD [address], [place], [address], [facility]. 03/12/2024 11:23:04 OBGyn Episode No OBEpisode recorded.
== END 2024-06-11 15:49 | disposition home or self-care (01) ==
LOC: NCHCN 15:48
PROVIDERS: PCP Nurse Practitioner Family; Visit Provider Nurse Practitioner Family
DX: R73.03 Prediabetes (principal); I10 Essential (primary) hypertension
CPT/HCPCS: 80053; 80061; 83036

== ENCOUNTER 2024-11-29 11:33 | Outpatient (REF) | payer MEDICAID, SELFPAY ==
[2024-12-02 11:43] LABS: HSV Type 1 Ab, IgG Negative (Negative); HSV Type 2 Ab, IgG Negative (Negative)
== END 2024-11-29 11:34 | disposition home or self-care (01) ==
LOC: NCHCN 11:33
PROVIDERS: PCP Nurse Practitioner Family; Visit Provider Nurse Practitioner Family
DX: Z20.9 Contact with and (suspected) exposure to unspecified communicable disease (principal)
CPT/HCPCS: 86695; 86696

== ENCOUNTER 2025-07-22 11:07 | Outpatient (REF) | payer MEDICAID, SELFPAY ==
[2025-07-22 17:41] LABS: Hemoglobin A1C 6.0 % (<5.7)
[2025-07-22 17:50] LABS: ALT 18 U/L (14-59); AST 17 U/L (15-37); Albumin 3.5 g/dL (3.4-5.0); Alkaline Phosphatase 54 U/L (46-116); Anion Gap 8.8 mmol/L (3-11); BUN 4 mg/dL (7-18); Bilirubin, Total 0.3 mg/dL (0.2-1.0); CO2 24.2 mmol/L (21.0-32.0); Calcium 8.6 mg/dL (8.5-10.1); Calculated LDL 117 mg/dL (<100); Chloride 104 mmol/L (98-107); Cholesterol 187 mg/dL (<200); Estimated GFR 106.62 (mL/min/1.73m2); Glucose 94 mg/dL (74-106); HDL Cholesterol 53 mg/dL (>or=50); Potassium 3.9 mmol/L (3.5-5.1); Sodium 137 mmol/L (136-145); Total Protein 7.1 g/dL (6.4-8.2); Triglyceride 87 mg/dL (<150)
[2025-07-22 17:51] LABS: COMMENT (LAB VIEW ONLY) 62.17 mg/dL; Microalb ug/mg Crea 7.9 ug/mg Cr
== END 2025-07-22 11:08 | disposition home or self-care (01) ==
LOC: NCHCN 11:07
PROVIDERS: PCP Nurse Practitioner Family; Visit Provider Nurse Practitioner Family
DX: Z13.220 Encounter for screening for lipoid disorders (principal); R73.03 Prediabetes; I10 Essential (primary) hypertension
CPT/HCPCS: 80053; 80061; 82043; 82570; 83036